=== PATIENT | female | born 1985 | race Caucasian/White ===

== ENCOUNTER 2016-07-21 08:55 | Inpatient (IN) | payer OTHER ==
--- NOTE | 2016-07-21 09:36 | HP ---
COWS - Scale Resting Pulse: 1= CT 81-100 Sweatin=Flushed/Facial Moisture Restless Observation: 5= Unable to Sit Still Pupil Size: 0= Normal to Room Light Bone or Joint Aches: 2= Severe Diffuse Aches Runny Nose/ Eye Tearin= Nasal Congestion GI Upset > 30mins: 3= Vomiting/Diarrhea Tremor Observation: 2= Slight Tremor Visible Yawning Observation: 0= None Anxiety or Irritability: 2=Irritable/Anxious Goose Flesh Skin: 0=Smooth Skin COWS Score: 18 Admission ROS BHS - HPI Chief Complaint: "I do not want to use anymore." Pt. is here to Detox from Heroin. Allergies/Adverse Reactions: Allergies Allergy/AdvReac Type Severity Reaction Status Date / Time ciprofloxacin [From Cipro] Allergy Severe Rash Verified 07/21/16 09:12 ciprofloxacin HCl Allergy Severe Rash Verified 07/21/16 09:12 [From Cipro] History of Present Illness: Pt. is a 31 YO female here to detox from Heroin. This is her first Detox admission. Exam Limitations: No Limitations - Ebola screening Have you traveled outside of the country in the last 21 days: No Have you had contact with anyone from an Ebola affected area: No Have you been sick,other than usual withdrawal symptoms: No Do you have a fever: No - Review of Systems Constitutional: Chills, Diaphoresis, Fever, Loss of Appetite, Malaise, Night Sweats, Changes in sleep, Unintentional Wgt. Loss EENT: reports: Nose Congestion, Sinus Pressure (Lost approx. 20 lbs over last few months.) Respiratory: reports: SOB with Exertion, Productive cough Cardiac: reports: Palpitations, Syncope (Yesterday, prior to ER admission at [facility].) GI: reports: Diarrhea, Nausea, Poor Appetite, Vomiting, Abdominal cramping : reports: Burning Musculoskeletal: reports: Back Pain, Joint Pain, Muscle Pain, Joint Stiffness Integumentary: reports: No Symptoms Reported Neuro: reports: Headache, Numbness (Bilateral hands and feet.), Tingling ( Bilateral hands and feet.), Tremors Endocrine: reports: No Symptoms Reported Hematology: reports: No Symptoms Reported Psychiatric: reports: Judgement Intact, Agitated, Anxious, Depressed, Disorientated (To Location.) Other Systems: Reviewed and Negative Patient History - Patient Medical History Hx Anemia: No Hx Asthma: Yes (No meds.) Hx Chronic Obstructive Pulmonary Disease (COPD): No Hx Cancer: No Hx Cardiac Disorders: No Hx Congestive Heart Failure: No Hx Hypertension: No Hx Hypercholesterolemia: No Hx Pacemaker: No HX Cerebrovascular Accident: No Hx Seizures: No Hx Dementia: No Hx Diabetes: No Hx Gastrointestinal Disorders: No Hx Liver Disease: No Hx Genitourinary Disorders: No Hx Sexually Transmitted Disorders: No Hx Renal Disease (ESRD): No Hx Thyroid Disease: No Hx Human Immunodeficiency Virus (HIV): No (NEGATIVE, cannot remember when last tested.) Hx Hepatitis C: No (Never Tested.) Hx Depression: Yes (Meds. in past, none currently.) Hx Suicide Attempt: Yes (Long time ago. PT. DENIES CURRENT SI / HI.) Hx Bipolar Disorder: No Hx Schizophrenia: No - Patient Surgical History Past Surgical History: No Hx Neurologic Surgery: No Hx Cataract Extraction: No Hx Cardiac Surgery: No Hx Lung Surgery: No Hx Breast Surgery: No Hx Breast Biopsy: No Hx Abdominal Surgery: Yes (umbicial hernia) Hx Appendectomy: Yes (Cannot remember when.) Hx Cholecystectomy: Yes (Cannot remember when.) Hx Genitourinary Surgery: No Hx Section: No Hx Orthopedic Surgery: No Hx Hysterectomy: No Other Surgical History: Repair of middle, ring, and pinky fingers of right hand. Anesthesia Reaction: No - PPD History Documented Results: Negative w/o proof PPD to be Administered?: Yes - Reproductive History Patient is a Female of Child Bearing Age (11 -55 yrs old): Yes Last Menstrual Period: 05/12/16 Patient : No - Smoking Cessation Smoking history: Current every day smoker Have you smoked in the past 12 months: Yes Aproximately how many cigarettes per day: 40 Cigars Per Day: 0 Hx Chewing Tobacco Use: No Initiated information on smoking cessation: Yes 'Breaking Loose' booklet given: 07/21/16 (GIVEN ON UNIT.) - Substance & Tx. History Hx Alcohol Use: No Hx Substance Use: Yes Substance Use Type: Heroin Hx Substance Use Treatment: No - Substances Abused Heroin Route: Inhalation Frequency: Daily Amount used: 30 bags Age of first use: 31 Date of Last Use: 07/19/16 Family Disease History - Family Disease History Family Disease History: Other: Mother (Throat condition ?), Son (Asthma), Daughter (Asthma) Admission Physical Exam [facility] - Physical General Appearance: Yes: Appropriately Dressed, Severe Distress, Thin, Tremorous , Irritable, Anxious HEENTM: Yes: Hearing grossly Normal, Normocephalic, Normal Voice, GONZALEZ, Pharynx Normal, Nasal Congestion Respiratory: Yes: Chest Non-Tender, Lungs Clear, No Respiratory Distress Neck: Yes: No masses,lesions,Nodules, Supple, Trachea in good position Breast: Yes: Breast Exam Deferred Cardiology: Yes: Regular Rhythm, Regular Rate, S1, S2 Abdominal: Yes: Normal Bowel Sounds, Flat Genitourinary: Yes: Burning Back: Yes: Normal Inspection Musculoskeletal: Yes: Gait Steady, Back pain, Joint Stiffness, Muscle Pain Extremities: Yes: Tremors Neurological: Yes: Alert, Normal Response, Disoriented (To Location.) Integumentary: Yes: Normal Color, Dry, Warm Lymphatic: Yes: Within Normal Limits - Diagnostic (1) Opioid dependence with withdrawal Current Visit: Yes Status: Acute (2) Asthma Current Visit: Yes Status: Chronic Qualifiers: Asthma severity: mild intermittent Asthma complication type: uncomplicated Qualified Code(s): J45.20 - Mild intermittent asthma, uncomplicated (3) Nicotine dependence Current Visit: Yes Status: Chronic Qualifiers: Nicotine product type: cigarettes Substance use status: uncomplicated Qualified Code(s): F17.210 - Nicotine dependence, cigarettes, uncomplicated Cleared for Admission [facility] - Detox or Rehab [facility] Level of Care: Medically Managed (Patient advised to follow-up with [facility] / Rehab medical provider after Discharge from Detox for general medical evaluation and for history of Asthma.) Detox Regimen/Protocol: Methadone
[2016-07-21 09:48] VITALS: BMI 19.6
[2016-07-21] MEDS ORDERED: LOPERAMIDE HCL 2 MG CAPSULE PO PRN (10:14)
[2016-07-21] MEDS ORDERED: MAGNESIUM HYDROX 2400MG/30ML ORAL SUSPENSION 30 ML CUP PO PRN (10:14)
[2016-07-21] MEDS ORDERED: guaiFENesin/D-METHORPHAN HB 10 ML UNIT-DOSE CUPS PO PRN (10:14)
[2016-07-21] MEDS ORDERED: MAGNESIUM CITRATE 300 ML BOTTLE PO PRN (10:14)
[2016-07-21] MEDS ORDERED: MAG HYDROX/AL HYDROX/SIMETH 30 ML UNIT-DOSE CUP PO PRN (10:14)
[2016-07-21] MEDS ORDERED: P-EPHED 60MG/TRIPROLIDI 2.5MG TABLET PO PRN (10:14)
[2016-07-21] MEDS ORDERED: MENTHOL/PHENOL 1 EACH UD MM PRN (10:14)
[2016-07-21] MEDS ORDERED: ALBUTEROL SO4 2.5/IPRATROPIUM 0.5 INH SOL 3 ML VIAL.NEB. NEB PRN (10:31)
[2016-07-21] MEDS: diazePAM 5 MG TABLET PO PRN ×3 (11:28→22:17)
[2016-07-21] MEDS: NICOTINE 21 MG/24 HOURS TOPICAL PATCH TD SCH (11:29)
[2016-07-21] MEDS: IBUPROFEN 400 MG TABLET (FP) PO PRN (11:29)
[2016-07-21] MEDS ORDERED: METHADONE HCL 10 MG TABLET (FOR DETOX USE ONLY) PO ONE ×2 (11:30→23:00)
[2016-07-21] MEDS: ALBUTEROL SO4 6.7 GM HFA INHALER IH PRN ×2 (13:37→21:47)
[2016-07-21] MEDS: ACETAMINOPHEN 325 MG TABLET (FP) PO PRN (15:23)
[2016-07-21] MEDS: NICOTINE POLACRILEX 4 MG GUM BUC PRN (22:19)
[2016-07-21] MEDS: THIAMINE HCL 100 MG TABLET (FP) PO SCH (22:20)
[2016-07-22] MEDS: ACETAMINOPHEN 325 MG TABLET (FP) PO PRN (05:33)
[2016-07-22] MEDS: diazePAM 5 MG TABLET PO PRN ×3 (08:49→19:01)
--- NOTE | 2016-07-22 09:23 | PN ---
BHS COWS - Scale Resting Pulse: 0= [place] 80 or Below Sweatin= Chills/Flushing Restless Observation: 3= Extraneous Movement Pupil Size: 1= Pupils >than Normal Bone or Joint Aches: 2= Severe Diffuse Aches Runny Nose/ Eye Tearin= Runny Nose/Eyes GI Upset > 30mins: 2= Nausea/Diarrhea Tremor Observation of Outstretched Hands: 2= Slight Tremor Visible Yawning Observation: 1= 1-2x During Session Anxiety or Irritability: 2=Irritable/Anxious Goose Flesh Skin: 0=Smooth Skin COWS Score: 16 BHS Progress Note (SOAP) Subjective: ALERT,IRRITABLE,ANXIOUS,INTERRUPTED SLEEP,TREMOR Objective: 07/22/16 09:21 Vital Signs Temperature 97.9 F 07/22/16 06:00 Pulse Rate 54 L 07/22/16 06:00 Respiratory Rate 18 07/22/16 06:00 Blood Pressure 103/64 07/22/16 06:00 O2 Sat by Pulse Oximetry (%) ERKG NSR WITH SINUS ARRHYTHMIA NORMAL ECG 07/22/16 09:22 07/22/16 09:23 LABS PENDING Assessment: 07/22/16 09:22 Vital Signs Temperature 97.9 F 07/22/16 06:00 Pulse Rate 54 L 07/22/16 06:00 Respiratory Rate 18 07/22/16 06:00 Blood Pressure 103/64 07/22/16 06:00 O2 Sat by Pulse Oximetry (%) 07/22/16 09:22 WITHDRAWAL SYMPTOM 07/22/16 09:23 Plan: CONTINUE DETOX
[2016-07-22] MEDS ORDERED: METHADONE HCL 10 MG TABLET (FOR DETOX USE ONLY) PO ONE (10:00)
[2016-07-22] MEDS: PRENATAL VITAMINS W/ FOLIC ACID TABLET (FP) PO SCH (10:04)
[2016-07-22] MEDS: NICOTINE 21 MG/24 HOURS TOPICAL PATCH TD SCH (10:04)
[2016-07-22 10:07] LABS: MCH 30.5 pg (25.7-33.7); MCHC 33.5 g/dl (32.0-36.0); MEAN CELL VOLUME 91.1 fl (80-96); MEAN PLT VOLUME 7.6 fl (7.5-11.1); PLATELET COUNT 287 K/MM3 (134-434); RDW 12.6 % (11.6-15.6); WHITE BLOOD COUNT 5.5 K/mm3 (4.0-10.0)
[2016-07-22 10:08] LABS: URINE APPEARANCE SLCLOUDY; URINE BILIRUBIN NEGATIVE (NEGATIVE); URINE BLOOD NEGATIVE (NEGATIVE); URINE COLOR YELLOW; URINE GLUCOSE (UA) NEGATIVE (NEGATIVE); URINE KETONE NEGATIVE (NEGATIVE); URINE NITRITE NEGATIVE (NEGATIVE); URINE UROBILINOGEN NEGATIVE E.U./dl (0.2-1.0)
[2016-07-22 10:12] LABS: ALBUMIN 3.6 g/dl (3.4-5.0); ANION GAP 8 (8-16); CALCIUM 9.2 mg/dL (8.5-10.1); CO2 28 mmol/L (21-32); GLUCOSE,RANDOM 95 mg/dL (74-106)
[2016-07-22 10:15] LABS: ALK PHOS 56 U/L (45-117); BILIRUBIN,TOTAL 0.4 mg/dL (0.2-1.0); CREATININE 0.8 mg/dL (0.55-1.02); SGOT/AST 10 U/L (15-37); SGPT/ALT 15 U/L (12-78); TOT PROT 7.1 g/dl (6.4-8.2)
[2016-07-22 10:23] LABS: URINE LEUK ESTERASE TRACE (NEGATIVE); URINE PROTEIN 1+ (NEGATIVE)
[2016-07-22 10:40] LABS: CALCIUM OXALATE CRYSTALS RARE /hpf (NONE SEEN); URINE MUCUS MANY; URINE RBC 11 /hpf (0-3); URINE WBC 12 /hpf (3-5)
[2016-07-22 10:44] LABS: HIV 1 & 2 AB NEGATIVE; HIV 1 AGp24 NEGATIVE
--- NOTE | 2016-07-22 11:19 | CONSULT ---
[facility] Psychiatric Consult - Data Date of interview: 07/22/16 Admission source: [facility] Identifying data: This is 4- years old female with psychiatric hosdpitalization history intoxicated with Opioids and Nicotine Substance Abuse History: - Smoking Cessation. Smoking history: Current every day smoker. Have you smoked in the past 12 months: Yes. Aproximately how many cigarettes per day: 40. Cigars Per Day: 0. Hx Chewing Tobacco Use: No. Initiated information on smoking cessation: Yes. 'Breaking Loose' booklet given : 07/21/16 (GIVEN ON UNIT.). - Substance & Tx. History. Hx Alcohol Use: No. Hx Substance Use: Yes. Substance Use Type: Heroin. Hx Substance Use Treatment : No. - Substances Abused. Heroin. Route: Inhalation. Frequency: Daily. Amount used: 30 bags. Age of first use: 31. Date of Last Use: 07/19/16 Medical History: Astma Psychiatric History: Patient rep[orts unclear history of psychiatric hospitalization on 2015 at [facility]. reports taking prior to admission: Gabapentin 400mg po tid. Seroquel 100mg po qhs Physical/Sexual Abuse/Trauma History: Denies Additional Comment: Gabapentin 400mg po tid. Seroquel 100mg po qhs Mental Status Exam - Mental Status Exam Alert and Oriented to: Person Cognitive Function: Fair Patient Appearance: Unkempt Mood: Sad Affect: Flat Patient Behavior: Sedated Speech Pattern: Delayed Voice Loudness: Mildly Soft/Quiet Thought Process: Goal Oriented Thought Disorder: Being Controlled Hallucinations: Denies Suicidal Ideation: Denies Homicidal Ideation: Denies Insight/Judgement: Fair Sleep: Difficulty falling asleep Appetite: Weight loss Muscle strength/Tone: Normal Gait/Station: Shuffling Additional Comments: Gabapentin 400mg po tid. Seroquel 100mg po qhs Psychiatric Findings - Problem List ([place] 1, 2,3) (1) Opioid dependence with withdrawal Current Visit: Yes Status: Acute (2) Nicotine dependence Current Visit: Yes Status: Chronic Qualifiers: Nicotine product type: cigarettes Substance use status: uncomplicated Qualified Code(s): F17.210 - Nicotine dependence, cigarettes, uncomplicated (3) Drug-induced mood disorder Current Visit: Yes Status: Acute - Initial Treatment Plan Initial Treatment Plan: Gabapentin 400mg po tid. Seroquel 100mg po qhs
[2016-07-22] MEDS ORDERED: INFLUENZA VACCINE 45 MCG/0.5 ML (MDV 16-17) IM ONE (12:00)
[2016-07-22] MEDS ORDERED: PNEUMOCOCCAL 23 VACCINE 0.5 ML VIAL IM ONE (12:00)
[2016-07-22] MEDS ORDERED: PNEUMOC 13-VAL CONJ-DIP CRM/PF 0.5 ML DISP.SYRIN IM ONE (12:00)
--- NOTE | 2016-07-22 13:58 | EKG ---
Test Reason : Blood Pressure : / mmHG Vent. Rate : 070 BPM Atrial Rate : 070 BPM P-R Int : 136 ms QRS Dur : 084 ms QT Int : 404 ms P-R-T Axes : 052 010 033 degrees QTc Int : 436 ms NORMAL SINUS RHYTHM WITH SINUS ARRHYTHMIA NORMAL ECG NO PREVIOUS ECGS AVAILABLE Confirmed by CONCHIS HAMM, CALVIN ([id number]) on 07/22/2016 1:58:41 PM Referred By: Confirmed By:CALVIN BALDERRAMA MD
[2016-07-22] MEDS: GABAPENTIN 400 MG CAPSULE (FP) PO SCH ×2 (15:15→22:29)
[2016-07-22] MEDS: hydrOXYzine PAMOATE 50 MG CAPSULE (FP) PO PRN (19:01)
[2016-07-22] MEDS: ALBUTEROL SO4 6.7 GM HFA INHALER IH PRN (20:13)
[2016-07-22] MEDS: THIAMINE HCL 100 MG TABLET (FP) PO SCH (22:29)
[2016-07-22] MEDS: diphenhydrAMINE HCL 50 MG CAPSULE PO PRN (22:30)
[2016-07-23] MEDS: GABAPENTIN 400 MG CAPSULE (FP) PO SCH ×3 (06:12→22:16)
[2016-07-23] MEDS: diazePAM 5 MG TABLET PO PRN ×4 (06:13→19:57)
[2016-07-23] MEDS ORDERED: METHADONE HCL 5 MG TABLET (FOR DETOX USE ONLY) PO ONE (10:00)
[2016-07-23] MEDS: NICOTINE 21 MG/24 HOURS TOPICAL PATCH TD SCH (10:25)
[2016-07-23] MEDS: PRENATAL VITAMINS W/ FOLIC ACID TABLET (FP) PO SCH (10:25)
--- NOTE | 2016-07-23 10:33 | PN ---
S COWS - Scale Resting Pulse: 0= [place] 80 or Below Sweatin= Chills/Flushing Restless Observation: 3= Extraneous Movement Pupil Size: 1= Pupils >than Normal Bone or Joint Aches: 2= Severe Diffuse Aches Runny Nose/ Eye Tearin= Runny Nose/Eyes GI Upset > 30mins: 2= Nausea/Diarrhea Tremor Observation of Outstretched Hands: 2= Slight Tremor Visible Yawning Observation: 1= 1-2x During Session Anxiety or Irritability: 2=Irritable/Anxious Goose Flesh Skin: 0=Smooth Skin COWS Score: 16 S Progress Note (SOAP) Subjective: ALERT,IRRITABLE,ANXIOUS,INTERRUPTED SLEEP,TREMOR Objective: 07/23/16 10:32 Vital Signs Temperature 98.9 F 07/23/16 10:21 Pulse Rate 101 H 07/23/16 10:21 Respiratory Rate 18 07/23/16 10:21 Blood Pressure 121/86 07/23/16 10:21 O2 Sat by Pulse Oximetry (%) Laboratory Last Values WBC 5.5 K/mm3 (4.0-10.0) 07/22/16 07:00 RBC 4.30 M/mm3 (3.60-5.2) 07/22/16 07:00 Hgb 13.1 GM/dL (10.7-15.3) 07/22/16 07:00 Hct 39.2 % (32.4-45.2) 07/22/16 07:00 MCV 91.1 fl (80-96) 07/22/16 07:00 MCHC 33.5 g/dl (32.0-36.0) 07/22/16 07:00 RDW 12.6 % (11.6-15.6) 07/22/16 07:00 Plt Count 287 K/MM3 (134-434) 07/22/16 07:00 MPV 7.6 fl (7.5-11.1) 07/22/16 07:00 Sodium 142 mmol/L (136-145) 07/22/16 07:00 Potassium 3.8 mmol/L (3.5-5.1) 07/22/16 07:00 Chloride 106 mmol/L (98-107) 07/22/16 07:00 Carbon Dioxide 28 mmol/L (21-32) 07/22/16 07:00 Anion Gap 8 (8-16) 07/22/16 07:00 BUN 10 mg/dL (7-18) 07/22/16 07:00 Creatinine 0.8 mg/dL (0.55-1.02) 07/22/16 07:00 Creat Clearance w eGFR > 60 (>60) 07/22/16 07:00 Random Glucose 95 mg/dL (74-106) 07/22/16 07:00 Calcium 9.2 mg/dL (8.5-10.1) 07/22/16 07:00 Total Bilirubin 0.4 mg/dL (0.2-1.0) 07/22/16 07:00 AST 10 U/L (15-37) L 07/22/16 07:00 ALT 15 U/L (12-78) 07/22/16 07:00 Alkaline Phosphatase 56 U/L (45-117) 07/22/16 07:00 Total Protein 7.1 g/dl (6.4-8.2) 07/22/16 07:00 Albumin 3.6 g/dl (3.4-5.0) 07/22/16 07:00 Urine Color Yellow 07/22/16 07:00 Urine Appearance Slcloudy 07/22/16 07:00 Urine pH 6.0 (5.0-8.0) 07/22/16 07:00 Ur Specific [place] 1.032 (1.001-1.035) 07/22/16 07:00 Urine Protein 1+ (NEGATIVE) H 07/22/16 07:00 Urine Glucose (UA) Negative (NEGATIVE) 07/22/16 07:00 Urine Ketones Negative (NEGATIVE) 07/22/16 07:00 Urine Blood Negative (NEGATIVE) 07/22/16 07:00 Urine Nitrite Negative (NEGATIVE) 07/22/16 07:00 Urine Bilirubin Negative (NEGATIVE) 07/22/16 07:00 Urine Urobilinogen Negative E.U./dl (0.2-1.0) 07/22/16 07:00 Ur Leukocyte Esterase Trace (NEGATIVE) H 07/22/16 07:00 Urine RBC 11 /hpf (0-3) 07/22/16 07:00 Urine WBC 12 /hpf (3-5) 07/22/16 07:00 Ur Epithelial Cells Rare /hpf (FEW) 07/22/16 07:00 Calcium Oxalate Crystal Rare /hpf (NONE SEEN) 07/22/16 07:00 Urine Mucus Many 07/22/16 07:00 RPR Titer Nonreactive (NONREACTIVE) 07/22/16 07:00 HIV 1&2 Antibody Screen Negative 07/21/16 07:00 HIV P24 Antigen Negative 07/21/16 07:00 Assessment: 07/23/16 10:33 WITHDRAWAL SYMPTOM Plan: CONTINUE DETOX,REPEAT UA
[2016-07-23] MEDS: hydrOXYzine PAMOATE 50 MG CAPSULE (FP) PO PRN (18:00)
[2016-07-23] MEDS: diphenhydrAMINE HCL 50 MG CAPSULE PO PRN (22:16)
[2016-07-23] MEDS: THIAMINE HCL 100 MG TABLET (FP) PO SCH (22:16)
[2016-07-24] MEDS: GABAPENTIN 400 MG CAPSULE (FP) PO SCH ×3 (07:00→22:26)
[2016-07-24] MEDS: hydrOXYzine PAMOATE 50 MG CAPSULE (FP) PO PRN ×3 (09:09→19:37)
[2016-07-24] MEDS: diazePAM 5 MG TABLET PO PRN (09:09)
[2016-07-24] MEDS ORDERED: METHADONE HCL 5 MG TABLET (FOR DETOX USE ONLY) PO ONE (10:00)
[2016-07-24 10:27] LABS: URINE APPEARANCE SLCLOUDY; URINE BILIRUBIN NEGATIVE (NEGATIVE); URINE BLOOD NEGATIVE (NEGATIVE); URINE COLOR YELLOW; URINE GLUCOSE (UA) NEGATIVE (NEGATIVE); URINE KETONE NEGATIVE (NEGATIVE); URINE LEUK ESTERASE NEGATIVE (NEGATIVE); URINE NITRITE NEGATIVE (NEGATIVE); URINE PROTEIN NEGATIVE (NEGATIVE); URINE UROBILINOGEN NEGATIVE E.U./dl (0.2-1.0)
[2016-07-24] MEDS: NICOTINE 21 MG/24 HOURS TOPICAL PATCH TD SCH (10:30)
[2016-07-24] MEDS: PRENATAL VITAMINS W/ FOLIC ACID TABLET (FP) PO SCH (10:30)
--- NOTE | 2016-07-24 11:04 | PN ---
BHS Progress Note (SOAP) Subjective: ALERT,IRRITABLE,ANXIOUS,INTERRUPTED SLEEP,PAIN IN THE BODY Objective: 07/24/16 11:04 Vital Signs Temperature 100 F H 07/24/16 09:46 Pulse Rate 102 H 07/24/16 09:46 Respiratory Rate 16 07/24/16 09:46 Blood Pressure 124/83 07/24/16 09:46 O2 Sat by Pulse Oximetry (%) Assessment: 07/24/16 11:04 WITHDRAWAL SYMPTOM Plan: CONTINUE DETOX
[2016-07-24] MEDS ORDERED: cloNIDine HCL 0.1 MG TABLET PO ONE (12:51)
--- NOTE | 2016-07-24 13:14 | PN ---
Psychiatric Progress Note Vital Signs: Vital Signs Period Temp Pulse Resp BP Sys/Walsh Pulse Ox Last 24 Hr 97.1 F-100 F 66-102 16-20 102-124/57-85 Date of Session: 07/24/16 Chief Complaint:: Follow up visit HPI: Case of a 31 y/o female undergoing detox treatment,on for opioid dependence.Doing well until she got reportedly " threatened " today,via telephone,by an [employer] worker.According to the patient,the [employer] employee informed her that her parental rights will be reviewed by the Family Court activity therapist.Consequently,the patient got upset and frightened.Crying spells followed and the psychiatrist is called for a re-evaluation. ROS: Unremarkable.Normal vitals.Good physical health.Cognition :intact. Current Medications: Active Medications Generic Name Dose Route Start Last Admin Trade Name Freq PRN Reason Stop Dose Admin Acetaminophen 650 mg 07/21/16 10:14 07/22/16 05:33 Tylenol - PO 650 mg Q4H PRN Administration FEVER OR PAIN Al Hydroxide/Mg Hydroxide 30 ml 07/21/16 10:14 Mylanta Oral Suspension - PO Q6H PRN DYSPEPSIA Albuterol Sulfate 2 puff 07/21/16 10:18 07/22/16 20:13 Ventolin Hfa Inhaler - IH 2 inhaler Q4H PRN Administration SHORT OF BREATH/WHEEZING Albuterol/Ipratropium 1 amp 07/21/16 10:31 07/21/16 18:05 Duoneb - NEB 1 amp Q4H PRN Administration SHORTNESS OF BREATH Clonidine 0.1 mg 07/24/16 22:00 Catapres - PO BID WILBERTO Diphenhydramine HCl 50 mg 07/21/16 10:14 07/23/16 22:16 Benadryl - PO 50 mg HSMR1 PRN Administration INSOMNIA Eucalyptus/Menthol/Phenol/Sorbitol 1 each 07/21/16 10:14 Cepastat Lozenge - MM Q4H PRN SORE THROAT Gabapentin 400 mg 07/22/16 14:00 07/24/16 07:00 Neurontin - PO 400 mg TID WILBERTO Administration Guaifenesin 10 ml 07/21/16 10:14 Robitussin Dm - PO Q6H PRN COUGH Hydroxyzine Pamoate 50 mg 07/21/16 10:14 07/24/16 09:09 Vistaril - PO 50 mg Q4H PRN Administration AGITATION Ibuprofen 400 mg 07/21/16 10:14 07/21/16 11:29 Motrin - PO 400 mg Q6H PRN Administration SEVERE PAIN Loperamide HCl 4 mg 07/21/16 10:14 07/21/16 13:39 Imodium - PO 4 mg Q6H PRN Administration DIARRHEA Magnesium Citrate 300 ml 07/21/16 10:14 Citroma - PO Q48H PRN CONSTIPATION Magnesium Hydroxide 30 ml 07/21/16 10:14 Milk Of Magnesia - PO DAILY PRN CONSTIPATION Methadone HCl 10 mg 07/25/16 10:00 Dolophine - PO 07/25/16 10:01 ONCE ONE Methadone HCl 5 mg 07/26/16 06:00 Dolophine - PO 07/26/16 06:01 ONCE@0600 ONE Nicotine 21 mg 07/21/16 10:15 07/24/16 10:30 Nicoderm Patch - TD 21 mg DAILY WILBERTO Administration Nicotine Polacrilex 4 mg 07/21/16 10:14 07/21/16 22:19 Nicorette Gum - BUC 4 mg Q2H PRN Administration NICOTINE REPLACEMENT RX Multivit/Folic Acid/Iron 1 tab 07/22/16 10:00 07/24/16 10:30 Vitamins (Sjr) - PO 1 tab DAILY WILBERTO Administration Pseudoephedrine/Triprolidine 1 combo 07/21/16 10:14 07/21/16 13:38 Actifed - PO 1 combo TID PRN Administration NASAL CONGESTION Quetiapine Fumarate 100 mg 07/24/16 22:00 Seroquel - PO HS WILBERTO Thiamine HCl 100 mg 07/21/16 22:00 07/23/16 22:16 Vitamin B1 - PO 100 mg HS WILBERTO Administration Medication(s) Change(s): None. Current Side Effect: No Lab tests ordered: No Lab tests reviewed: Yes Provider note:: Chart reviewed.Dr Crespo's new admission note : read and appreciated.Met with the patient.Situation is appraised.History taken.Ms Bro explains that she is " trying my best to change my lifestyle because I don't want to lose my two children." She reports that the children are safe in the custody of their father + paternal aunt in the absence of the patient.She feels that the [employer] worker is " pushing too hard " and that this situation may lead to termination of parental custody.This is a normal reaction to this particular stressor and the patient's fears are legitimate.Ms Bro responded favorably to reassurance.She is advised to focus on treatment,maintain a calm attitude and follow the directives of the Family Court.Mental status is stable for continuation of detox treatment at [address] [place] [address].Discussed with nurse Elyse Wiseman. Total face to face time:: 45 Mental Status Exam - Mental Status Exam Alert and Oriented to: Time, Place, Person Cognitive Function: Good Patient Appearance: Well Groomed (petite,thin habitus) Mood: Fearful (worries about losing custody of her children), Anxious, Apprehensive Affect: Appropriate, Mood Congruent Patient Behavior: Crying (at intervals during the interview.), Appropriate, Cooperative Speech Pattern: Clear, Appropriate Voice Loudness: Normal Thought Process: Intact, Goal Oriented Hallucinations: Denies Suicidal Ideation: Denies Homicidal Ideation: Denies Insight/Judgement: Fair Sleep: Poorly, Difficulty falling asleep (self-report) Appetite: Fair Muscle strength/Tone: Normal Gait/Station: Normal Psychiatric Treatment Plan - Problem List (1) Opioid dependence with withdrawal Current Visit: Yes (2) Drug-induced mood disorder Current Visit: Yes (3) Asthma Current Visit: Yes Qualifiers: Asthma severity: mild intermittent Asthma complication type: uncomplicated Qualified Code(s): J45.20 - Mild intermittent asthma, uncomplicated (4) Nicotine dependence Current Visit: Yes Qualifiers: Nicotine product type: cigarettes Substance use status: uncomplicated Qualified Code(s): F17.210 - Nicotine dependence, cigarettes, uncomplicated
[2016-07-24] MEDS: IBUPROFEN 400 MG TABLET (FP) PO PRN (15:20)
[2016-07-24] MEDS: ACETAMINOPHEN 325 MG TABLET (FP) PO PRN (19:38)
[2016-07-24] MEDS: NICOTINE POLACRILEX 4 MG GUM BUC PRN (19:52)
[2016-07-24] MEDS: THIAMINE HCL 100 MG TABLET (FP) PO SCH (22:26)
[2016-07-24] MEDS: QUEtiapine FUMARATE 100 MG TABLET (FP) PO SCH (22:26)
[2016-07-24] MEDS: cloNIDine HCL 0.1 MG TABLET PO SCH (22:55)
[2016-07-24] MEDS: diphenhydrAMINE HCL 50 MG CAPSULE PO PRN (23:46)
[2016-07-25] MEDS: GABAPENTIN 400 MG CAPSULE (FP) PO SCH ×3 (07:15→22:30)
[2016-07-25] MEDS: hydrOXYzine PAMOATE 50 MG CAPSULE (FP) PO PRN ×2 (09:22→14:13)
[2016-07-25] MEDS: ALBUTEROL SO4 6.7 GM HFA INHALER IH PRN (09:23)
[2016-07-25] MEDS ORDERED: METHADONE HCL 10 MG TABLET (FOR DETOX USE ONLY) PO ONE (10:00)
[2016-07-25] MEDS: NICOTINE 21 MG/24 HOURS TOPICAL PATCH TD SCH (10:50)
[2016-07-25] MEDS: PRENATAL VITAMINS W/ FOLIC ACID TABLET (FP) PO SCH (10:50)
[2016-07-25] MEDS: cloNIDine HCL 0.1 MG TABLET PO SCH ×2 (10:50→22:29)
[2016-07-25] MEDS: NICOTINE POLACRILEX 4 MG GUM BUC PRN (10:53)
--- NOTE | 2016-07-25 12:27 | PN ---
BHS Progress Note (SOAP) Subjective: anxiety sweats Objective: 07/25/16 12:27 Vital Signs Temperature 96.1 F L 07/25/16 09:56 Pulse Rate 72 07/25/16 09:56 Respiratory Rate 18 07/25/16 09:56 Blood Pressure 100/72 07/25/16 09:56 O2 Sat by Pulse Oximetry (%) awake/alert ambulating no acute distress Assessment: 07/25/16 12:27 withdrawal mild Plan: continue detox increase fluids d/c in am
[2016-07-25] MEDS: IBUPROFEN 400 MG TABLET (FP) PO PRN ×2 (14:16→23:46)
[2016-07-25] MEDS: THIAMINE HCL 100 MG TABLET (FP) PO SCH (22:29)
[2016-07-25] MEDS: QUEtiapine FUMARATE 100 MG TABLET (FP) PO SCH (22:29)
[2016-07-25] MEDS: diphenhydrAMINE HCL 50 MG CAPSULE PO PRN (22:30)
[2016-07-26] MEDS: ACETAMINOPHEN 325 MG TABLET (FP) PO PRN (05:48)
[2016-07-26] MEDS: GABAPENTIN 400 MG CAPSULE (FP) PO SCH (05:48)
[2016-07-26] MEDS ORDERED: METHADONE HCL 5 MG TABLET (FOR DETOX USE ONLY) PO ONE (06:00)
[2016-07-26 06:25] VITALS: BP 109/64; PULSE 85; TEMP 97.3
--- NOTE | 2016-07-26 07:44 | PN ---
S Progress Note (SOAP) Subjective: ALERT,NO COMPLAINT Objective: 07/26/16 07:42 Vital Signs Temperature 97.3 F L 07/26/16 06:24 Pulse Rate 85 07/26/16 06:24 Respiratory Rate 18 07/26/16 06:24 Blood Pressure 109/64 07/26/16 06:24 O2 Sat by Pulse Oximetry (%) Assessment: 07/26/16 07:43 DETOX COMPLETED,NO WITHDRAWAL SYMPTOM Plan: DISCHARGE TODAY,FOLLOW UP WITH AFTER CARE PROGRAM ARRANGEMENT
--- NOTE | 2016-07-26 07:47 | DS ---
[facility] Detox Discharge Summary Admission Date: 07/21/16 Discharge Date: 07/26/16 - History Present History: Opioid Dependence Additional Comments: FOLLOW UP WITH AFTER [facility] PROGRAM ARRANGEMENT AND PMD FOR MEDICAL PROBLEM AND OWN PSYCHIATRIST FOLLOW UP Pertinent Past History: ASTHMA NICOTINE DEPENDENCE - Physical Exam Results Vital Signs: Vital Signs Temperature 97.3 F L 07/26/16 06:24 Pulse Rate 85 07/26/16 06:24 Respiratory Rate 18 07/26/16 06:24 Blood Pressure 109/64 07/26/16 06:24 O2 Sat by Pulse Oximetry (%) Pertinent Admission Physical Exam Findings: WITHDRAWAL SYMPTOM - Treatment Hospital Course: Detox Protocol Followed, Detoxed Safely, Responded well, Discharged Condition Good Patient has Accepted a Rehab Referral to: DECLINED - Medication Discharge Medications: Ambulatory Orders Gabapentin [Neurontin -] 400 mg PO TID #90 capsule 07/22/16 Quetiapine Fumarate [Seroquel] 100 mg PO HS #30 tablet 07/24/16 - AMA Did Patient Leave Against Medical Advice: No
== END 2016-07-26 09:24 | disposition home or self-care (01) | DRG 773 ==
LOC: YASAS 08:55 → Y6N 09:46
PROVIDERS: ADMIT Internal Medicine Addiction Medicine; ATTEND Internal Medicine Addiction Medicine
PROC: HZ2ZZZZ Detoxification Services for Substance Abuse Treatment (ICD-10-PCS; principal; 2016-07-26)
DX: F11.23 Opioid dependence with withdrawal (principal); F17.210 Nicotine dependence, cigarettes, uncomplicated; F19.24 Other psychoactive substance dependence with psychoactive substance-induced mood disorder; J45.20 Mild intermittent asthma, uncomplicated
CPT/HCPCS: 36415; 80053; 81003; 81015; 85027; 86593; 87389; 90732; 93005; 93010; 94640; G0009